=== PATIENT | female | born 1965 | race Two or more races ===

== ENCOUNTER 2020-05-06 06:02 | Emergency (ER) | payer OTHER ==
[~2020-05-06] VITALS: Ht 149.9 cm; Wt 57.6 kg
[2020-05-06] MEDS ORDERED: KETO10TA2 PO (13:20)
== END 2020-05-06 13:25 | disposition home or self-care (01) ==
LOC: ER 06:02
DX: N83.291 Other ovarian cyst, right side (principal); R10.31 Right lower quadrant pain